=== PATIENT | female | born 1970 | race Caucasian/White ===

== ENCOUNTER 2021-12-11 18:12 | Emergency (ER) | payer MEDICARE ==
[2021-12-11 19:11] LABS: HEMOGLOBIN 15.9 gm/dl (12.3-15.3); RED BLOOD COUNT 4.83 M/UL (4.00-5.10); WHITE BLOOD COUNT 8.8 K/UL (4.5-11.0)
[2021-12-11 19:36] LABS: BUN/CREATININE RATIO 14 (0-10)
[2021-12-11] MEDS ORDERED: PANTOPRAZOLE SO20 MG PO (20:50)
[2021-12-11] MEDS ORDERED: PREDNISONE20 MG PO (20:50)
== END 2021-12-11 21:00 | disposition home or self-care (01) ==
LOC: ER1 18:12
PROVIDERS: Family Medicine
DX: J44.1 Chronic obstructive pulmonary disease with (acute) exacerbation (principal); R10.13 Epigastric pain; F17.200 Nicotine dependence, unspecified, uncomplicated; F17.210 Nicotine dependence, cigarettes, uncomplicated; Z88.5 Allergy status to narcotic agent
CPT/HCPCS: 71045; 80053; 81001; 82550; 82553; 83690; 84484; 85025; 93005; 94664; 96374; 99285; C9113; Q9967